=== PATIENT | male | born 1945 | race Caucasian/White ===

== ENCOUNTER 2017-01-20 15:18 | Emergency (ER) | payer MEDICARE, BC ==
[2017-01-20 15:19] VITALS: O2SAT 97
[2017-01-20 16:08] VITALS: BP 127/60; PULSE 65; RESP 16; TEMP 99.5
== END 2017-01-20 16:40 | disposition home or self-care (01) | DRG 153 ==
LOC: ED 15:18
DX: J04.0 Acute laryngitis (principal)
CPT/HCPCS: 87430; 99282; 99283

== ENCOUNTER 2018-07-03 20:00 | Emergency (ER) | payer MEDICARE, BC ==
[2018-07-03 20:34] VITALS: BP 130/74; PULSE 64; RESP 20; TEMP 97.6; O2SAT 99
== END 2018-07-03 22:03 | disposition home or self-care (01) | DRG 206 ==
LOC: ED 20:00
DX: S22.31XA Fracture of one rib, right side, initial encounter for closed fracture (principal)
CPT/HCPCS: 71101; 99282; 99283

== ENCOUNTER 2018-07-16 06:53 | Day surgery (SDC) | payer MEDICARE, BC ==
[2018-07-16] MEDS ORDERED: PROPOFOL 500 MG/50 ML EMU IV ONE (07:52)
[2018-07-16] MEDS ORDERED: LIDOCAINE HCL 1% MPF 30 SOL ONE (07:52)
[2018-07-16] MEDS ORDERED: PROPOFOL 10 MG/ML EMU IV ONE (09:26)
[2018-07-16 09:59] VITALS: TEMP 97.4
[2018-07-16 10:27] VITALS: BP 145/75; PULSE 55; RESP 20; O2SAT 93
== END 2018-07-16 10:43 | disposition home or self-care (01) | DRG 392 ==
LOC: SURG 06:53
PROVIDERS: ATTEND Internal Medicine Gastroenterology
DX: R13.10 Dysphagia, unspecified (principal); R11.10 Vomiting, unspecified; E11.9 Type 2 diabetes mellitus without complications; Z79.4 Long term (current) use of insulin; K44.9 Diaphragmatic hernia without obstruction or gangrene; L53.8 Other specified erythematous conditions; Q40.3 Congenital malformation of stomach, unspecified; Q40.2 Other specified congenital malformations of stomach; Z86.010 Personal history of colon polyps; J84.10 Pulmonary fibrosis, unspecified; D12.2 Benign neoplasm of ascending colon; D12.0 Benign neoplasm of cecum; D12.4 Benign neoplasm of descending colon; D12.3 Benign neoplasm of transverse colon; K63.5 Polyp of colon; K64.8 Other hemorrhoids
CPT/HCPCS: 82962; J2001; J2704

== ENCOUNTER 2019-07-01 06:30 | Day surgery (SDC) | payer MEDICARE, BC ==
[~2019-07-01 06:30] MED LIST: ACETAZOLAMIDE 250 MG PO ONE; PHENYLEPHRINE HYDROCHLORIDE 10 MG/ML SOL ONE
[2019-07-01] MEDS: PHENYLEPHRINE HCL 10% OPHTHAL SOL ONE ×2 (06:37→06:51)
[2019-07-01] MEDS: CYCLOPENTOLATE 1% SOL ONE ×2 (06:37→06:51)
[2019-07-01] MEDS: TETRACAINE HCL 0.5 % OPHTH 1 DROP SOL ONE ×3 (06:37→08:02)
[2019-07-01] MEDS: KETOROLAC 0.5% OPTH 60 DROP SOL ONE ×2 (06:37→06:51)
[2019-07-01 06:43] VITALS: RESP 16
[2019-07-01] MEDS ORDERED: FENTANYL 100MCG/2ML SOL ONE (07:38)
[2019-07-01] MEDS ORDERED: MIDAZOLAM 2 MG/2 ML SOL ONE (07:38)
[2019-07-01] MEDS ORDERED: TRIMOXI ONE (07:58)
[2019-07-01] MEDS ORDERED: LIDOCAINE HCL 1% MPF 30 SOL ONE (07:58)
[2019-07-01] MEDS ORDERED: BSS 500 ML 500 ML IR ONE (07:58)
[2019-07-01] MEDS: POVIDONE IODINE 5% SOL ONE ×2 (08:03→08:08)
[2019-07-01 08:36] VITALS: BP 135/61; PULSE 60; TEMP 97.8; O2SAT 96
== END 2019-07-01 09:40 | disposition home or self-care (01) | DRG 125 ==
LOC: SURG 06:30
PROVIDERS: ATTEND Ophthalmology
DX: H25.89 Other age-related cataract (principal); E11.9 Type 2 diabetes mellitus without complications
CPT/HCPCS: J2250; J3010; A9270-GY; J2001; J2370